=== PATIENT | female | born 1965 | race Caucasian/White ===

== ENCOUNTER 2016-05-22 17:33 | Emergency (ER) | payer MEDICARE ==
[~2016-05-22] VITALS: Ht 152.4 cm; Wt 76.4 kg
[~2016-05-22 17:33] MED LIST: ALPRAZOLAM PO; AUGMENTIN XR 101 TER PO; CELEBREX; CELEXA40 MG PO; CILOXAN .3% EY2.5 ML OD; CIPRO 500MG TA500 MG PO; DAYQUIL PO; DOXYCYCLINE 10100 MG PO; EPIPEN 2-PAK1 MG/ML IM; FLEXERIL 1010 MG/TAB PO; HYDROXYZINE PO; LAMICTAL 100MG100 MG PO; LAMICTAL1 TAB PO; LEXAPRO10 MG PO; LORTAB 5/500 501 TAB PO; MAALOX1 TAB PO; METRONIDAZOLE500 MG PO; MILK OF MA400 MG/51 PO; MORPHINE; MOTRIN800 MG PO; MS CONTIN 330 MG/TAB PO; MSIR30 MG PO; MYLANTA PO; NAPROSYN500 MG PO; NAPROXEN 3375 MG/TAB PO; NEXIUM 40MG40 MG PO; NEXIUM PO; NORCO 325 MG-51 TAB PO; PEPCID 20MG TAB20 MG PO; PERCOCET 325 MG1 TA2 PO; PERCOCET 325 MG1 TAB PO; PHENERGAN 25 TA25 MG PO; PHENERGAN25 MG RC; PREDNISONE20 MG PO; PRILOSEC10 MG PO; TEGRETOL 1100 MG/TAB PO; TRAMADOL; TRAZADONE HYDR100 MG PO; ULTRAM 50MG TAB50 MG PO; ULTRAM50 MG PO; UNABLE; VALIUM10 MG PO; VOLTAREN 75 DR75 MG PO; WELLBUTRIN XL300 M1 PO; XANAX 1MG1 MG PO; XANAX1 MG PO; ZOFRAN 4MG T4 MG/TAB PO; ZOFRAN ODT4 MG PO; ZOFRAN4 M1 PO; [UNRECOGNIZED DRUG - OTHER] PO
[2016-05-22 17:36] VITALS: TEMP 98.3
[2016-05-22 18:36] LABS: BASO % 0.5 % (0.0-2.0); EOS # 0.1 (0.0-0.7); GRAN # 4.2 (1.4-6.5); HEMATOCRIT 39.3 % (37.0-47.0); LYMPH # 4.1 (1.2-3.4); LYMPH % 46.4 % (20.0-51.0); MEAN CELL VOLUME 88 fl (80.0-100.0); MEAN CORPUSCULAR HEMOGLOBIN 29 pg (27.0-31.0); MEAN CORPUSCULAR HGB CONC 33 g/dl (33.0-37.0); MEAN PLATELET VOLUME 8.7 fl (7.4-10.4); MONO # 0.4 (0.1-0.6); MONO % 4.9 % (1.7-9.3); PLATELET COUNT 410 K/mm3 (130-400); RED BLOOD COUNT 4.49 M/mm3 (4.10-5.30); REDCELL DISTRIBUTION WIDTH-CV 12.5 % (11.5-14.5); WHITE BLOOD COUNT 8.9 K/mm3 (4.8-10.8)
[2016-05-22 18:41] LABS: PH 7 (5-8); SQUAMOUS EPITHELIAL 0-2 /hpf; URINE APPEARANCE Clear; URINE BACTERIA None Seen /hpf; URINE BILIRUBIN Negative (NEGATIVE); URINE BLOOD Negative (NEGATIVE); URINE COLOR Yellow; URINE GLUCOSE Negative (NEGATIVE); URINE KETONE Negative (NEGATIVE); URINE UROBILINOGEN Negative (NEGATIVE); URINE WBC 0-2 /hpf
[2016-05-22 20:00] VITALS: BP 104/71; PULSE 80
== END 2016-05-22 20:00 | disposition home or self-care (01) ==
LOC: COL.ER 17:33
PROVIDERS: Family Medicine
DX: N81.6 Rectocele (principal); N76.0 Acute vaginitis

== ENCOUNTER → 2016-10-05 | Outpatient (CLI) | payer MEDICARE | LOC: COL.RAD 08:50 | DX: K57.92 Diverticulitis of intestine, part unspecified, without perforation or abscess without bleeding (principal); K76.0 Fatty (change of) liver, not elsewhere classified; K59.00 Constipation, unspecified; K57.90 Diverticulosis of intestine, part unspecified, without perforation or abscess without bleeding | CPT/HCPCS: Q9967 ==

== ENCOUNTER 2017-01-13 13:26 | Emergency (ER) | payer MEDICARE ==
[~2017-01-13] VITALS: Ht 152.4 cm; Wt 75.5 kg
[2017-01-13 13:53] VITALS: TEMP 98
[2017-01-13 14:28] LABS: BASO % 0.3 % (0.0-2.0); EOS # 0.1 (0.0-0.7); EOS % 0.6 % (0-4.0); GRAN # 6.5 (1.4-6.5); GRAN % 67.5 % (42.2-75.2); HEMATOCRIT 41.4 % (37.0-47.0); LYMPH # 2.7 (1.2-3.4); MEAN CELL VOLUME 89 fl (80.0-100.0); MEAN CORPUSCULAR HEMOGLOBIN 30 pg (27.0-31.0); MEAN CORPUSCULAR HGB CONC 34 g/dl (33.0-37.0); MEAN PLATELET VOLUME 8.9 fl (7.4-10.4); MONO # 0.3 (0.1-0.6); MONO % 3.4 % (1.7-9.3); PLATELET COUNT 411 K/mm3 (130-400); RED BLOOD COUNT 4.66 M/mm3 (4.10-5.30); REDCELL DISTRIBUTION WIDTH-CV 12.6 % (11.5-14.5); WHITE BLOOD COUNT 9.6 K/mm3 (4.8-10.8)
[2017-01-13 14:44] LABS: ALANINE AMINOTRANSFERASE 23 U/L (9-52); ALBUMIN 4.8 gm/dL (3.5-5.0); ALKALINE PHOSPHATASE 58 U/L (50-136); ANION GAP 14 mmol/L (7-16); BILIRUBIN,TOTAL 0.5 mg/dL (0.0-1.0); BLOOD UREA NITROGEN 10 mg/dL (7-17); CALCIUM 10.6 mg/dL (8.4-10.2); CARBON DIOXIDE 22 mmol/L (22-30); CHLORIDE 105 mmol/L (98-107); CREATININE, serum 0.54 mg/dL (0.52-1.25); GLUCOSE 100 mg/dL (74-106); SODIUM 142 mmol/L (137-145); TOTAL PROTEIN 8.7 gm/dL (6.4-8.2)
[2017-01-13 14:49] LABS: C-REACTIVE PROTEIN < 0.5 mg/dL (0.0-0.9)
[2017-01-13 15:45] LABS: PH 7 (5-8); SQUAMOUS EPITHELIAL 0-2 /hpf; URINE APPEARANCE Clear; URINE BACTERIA None Seen /hpf; URINE BILIRUBIN Negative (NEGATIVE); URINE BLOOD 3+ (NEGATIVE); URINE COLOR Straw; URINE GLUCOSE Negative (NEGATIVE); URINE KETONE Negative (NEGATIVE); URINE UROBILINOGEN Negative (NEGATIVE); URINE WBC 0-2 /hpf
[2017-01-13] MEDS ORDERED: PERCOCET 325 MG1 TA2 PO (16:51)
[2017-01-13 16:59] VITALS: BP 118/78; PULSE 89
== END 2017-01-13 17:00 | disposition home or self-care (01) ==
LOC: COL.ER 13:26
PROVIDERS: Nurse Practitioner
DX: M54.5 Low back pain (principal); M54.2 Cervicalgia; G89.29 Other chronic pain
CPT/HCPCS: J2270; J2405; J7030; Q9967

== ENCOUNTER 2017-11-01 04:28 | Emergency (ER) | payer MEDICARE ==
[~2017-11-01] VITALS: Ht 154.9 cm; Wt 70.5 kg
[2017-11-01 04:38] VITALS: TEMP 97.1
[2017-11-01 05:07] LABS: BASO % 0.3 % (0.0-2.0); EOS # 0.1 (0.0-0.7); EOS % 1.4 % (0-4.0); GRAN # 4.6 (1.4-6.5); GRAN % 47.1 % (42.2-75.2); HEMATOCRIT 38.3 % (37.0-47.0); HEMOGLOBIN 12.8 g/dl (12.5-16.0); LYMPH # 4.5 (1.2-3.4); LYMPH % 45.6 % (20.0-51.0); MEAN CELL VOLUME 89 fl (80.0-100.0); MEAN CORPUSCULAR HEMOGLOBIN 30 pg (27.0-31.0); MEAN CORPUSCULAR HGB CONC 33 g/dl (33.0-37.0); MEAN PLATELET VOLUME 8.8 fl (7.4-10.4); MONO # 0.5 (0.1-0.6); MONO % 5.4 % (1.7-9.3); PLATELET COUNT 419 K/mm3 (130-400); RED BLOOD COUNT 4.33 M/mm3 (4.10-5.30); REDCELL DISTRIBUTION WIDTH-CV 12.8 % (11.5-14.5)
[2017-11-01 05:11] LABS: INR 0.9 (0.8-3.0); PROTHROMBIN TIME 10.6 SECONDS (9.7-12.8)
[2017-11-01 05:12] LABS: ALANINE AMINOTRANSFERASE 22 U/L (9-52); ALBUMIN 4.2 gm/dL (3.5-5.0); ALKALINE PHOSPHATASE 55 U/L (50-136); ANION GAP 16 mmol/L (7-16); AST,SGOT 52 U/L (15-37); BILIRUBIN,TOTAL 0.3 mg/dL (0.0-1.0); BLOOD UREA NITROGEN 15 mg/dL (7-17); CALCIUM 9.1 mg/dL (8.4-10.2); CARBON DIOXIDE 20 mmol/L (22-30); CHLORIDE 104 mmol/L (98-107); CREATININE, serum 0.61 mg/dL (0.52-1.25); GLUCOSE 143 mg/dL (74-106); POTASSIUM 3.8 mmol/L (3.4-5.0); SODIUM 140 mmol/L (137-145); TOTAL PROTEIN 7.6 gm/dL (6.4-8.2)
[2017-11-01 05:26] LABS: TROPONIN-I < 0.012 ng/mL (0.000-0.034)
[2017-11-01] MEDS ORDERED: PERCOCET 325 MG1 TAB PO (06:07)
[2017-11-01] MEDS ORDERED: ZOFRAN 4MG T4 MG/TAB PO (06:08)
[2017-11-01] MEDS ORDERED: LIPITOR20 MG PO (06:08)
[2017-11-01 07:22] VITALS: BP 100/59; PULSE 60
== END 2017-11-01 07:22 | disposition home or self-care (01) ==
LOC: COL.ER 04:28
PROVIDERS: Emergency Medicine
DX: G89.29 Other chronic pain (principal); R07.89 Other chest pain; M54.9 Dorsalgia, unspecified; R10.9 Unspecified abdominal pain; F17.210 Nicotine dependence, cigarettes, uncomplicated; Z90.89 Acquired absence of other organs
CPT/HCPCS: J2360; J2405; J3010; J7030

== ENCOUNTER 2017-12-17 20:07 | Emergency (ER) | payer MEDICARE ==
[~2017-12-17] VITALS: Ht 154.9 cm; Wt 72.7 kg
[~2017-12-17 20:07] MED LIST changes: +LIPITOR20 MG PO
[2017-12-17 20:11] VITALS: TEMP 97.5
[2017-12-17 21:45] LABS: BASO % 0.3 % (0.0-2.0); EOS # 0.1 (0.0-0.7); EOS % 1.6 % (0-4.0); GRAN # 3.3 (1.4-6.5); GRAN % 42.6 % (42.2-75.2); HEMATOCRIT 40.3 % (37.0-47.0); HEMOGLOBIN 13.8 g/dl (12.5-16.0); LYMPH # 3.8 (1.2-3.4); LYMPH % 49.3 % (20.0-51.0); MEAN CELL VOLUME 88 fl (80.0-100.0); MEAN CORPUSCULAR HEMOGLOBIN 30 pg (27.0-31.0); MEAN CORPUSCULAR HGB CONC 34 g/dl (33.0-37.0); MEAN PLATELET VOLUME 8.7 fl (7.4-10.4); MONO # 0.5 (0.1-0.6); MONO % 5.9 % (1.7-9.3); PLATELET COUNT 316 K/mm3 (130-400); RED BLOOD COUNT 4.59 M/mm3 (4.10-5.30); REDCELL DISTRIBUTION WIDTH-CV 12.5 % (11.5-14.5)
[2017-12-17 21:47] LABS: COLLECTION METHOD CLEAN CATCH
[2017-12-17 21:51] LABS: ALANINE AMINOTRANSFERASE 25 U/L (9-52); ALBUMIN 4.3 gm/dL (3.5-5.0); ALKALINE PHOSPHATASE 51 U/L (50-136); ANION GAP 13 mmol/L (7-16); AST,SGOT 19 U/L (15-37); BILIRUBIN,TOTAL 0.2 mg/dL (0.0-1.0); BLOOD UREA NITROGEN 12 mg/dL (7-17); C-REACTIVE PROTEIN 0.7 mg/dL (0.0-0.9); CALCIUM 8.8 mg/dL (8.4-10.2); CARBON DIOXIDE 23 mmol/L (22-30); CHLORIDE 105 mmol/L (98-107); CREATININE, serum 0.67 mg/dL (0.52-1.25); GLUCOSE 108 mg/dL (74-106); POTASSIUM 3.9 mmol/L (3.4-5.0); SODIUM 141 mmol/L (137-145); TOTAL PROTEIN 7.8 gm/dL (6.4-8.2)
[2017-12-17 21:57] LABS: MUCOUS Present /lpf; PH 6 (5-8); SQUAMOUS EPITHELIAL 0-2 /hpf; URINE APPEARANCE Clear; URINE BACTERIA None Seen /hpf; URINE BILIRUBIN Negative (NEGATIVE); URINE BLOOD Negative (NEGATIVE); URINE COLOR Yellow; URINE GLUCOSE Negative (NEGATIVE); URINE KETONE Negative (NEGATIVE); URINE LEUKOCYTE ESTERASE Negative (NEGATIVE); URINE NITRATE Negative (NEGATIVE); URINE PROTEIN(semi-quant) Negative (NEGATIVE); URINE RBC 0-2 /hpf; URINE UROBILINOGEN >=4.0 mg/dL (NEGATIVE)
[2017-12-17 22:01] LABS: TROPONIN-I < 0.012 ng/mL (0.000-0.034)
[2017-12-17] MEDS ORDERED: ATIVAN 0.50.5 MG/TAB PO (23:36)
[2017-12-17] MEDS ORDERED: ZOFRAN 4MG T4 MG/TAB PO (23:36)
[2017-12-17 23:56] VITALS: BP 99/65; PULSE 79
== END 2017-12-18 | disposition home or self-care (01) ==
LOC: COL.ER 20:07
PROVIDERS: Emergency Medicine
DX: S33.9XXA Sprain of unspecified parts of lumbar spine and pelvis, initial encounter (principal); G89.29 Other chronic pain; M54.5 Low back pain; I10 Essential (primary) hypertension; R42 Dizziness and giddiness; F17.210 Nicotine dependence, cigarettes, uncomplicated; W19.XXXA Unspecified fall, initial encounter; Y93.E1 Activity, personal bathing and showering
CPT/HCPCS: J1170; J2060; J2405; J2550; J7030

== ENCOUNTER 2018-08-06 16:15 | Emergency (ER) | payer MEDICARE ==
[~2018-08-06] VITALS: Ht 154.9 cm; Wt 78.3 kg
[~2018-08-06 16:15] MED LIST changes: +ATIVAN 0.50.5 MG/TAB PO
[2018-08-06 16:20] VITALS: BP 135/77; TEMP 98
[2018-08-06 16:50] LABS: BASO % 0.2 % (0.0-2.0); EOS # 0.1 (0.0-0.7); GRAN # 6.3 (1.4-6.5); GRAN % 62.1 % (42.2-75.2); HEMATOCRIT 39.4 % (37.0-47.0); HEMOGLOBIN 13.2 g/dl (12.5-16.0); LYMPH # 3.2 (1.2-3.4); LYMPH % 31.7 % (20.0-51.0); MEAN CELL VOLUME 88 fl (80.0-100.0); MEAN CORPUSCULAR HEMOGLOBIN 30 pg (27.0-31.0); MEAN CORPUSCULAR HGB CONC 34 g/dl (33.0-37.0); MEAN PLATELET VOLUME 8.7 fl (7.4-10.4); MONO # 0.5 (0.1-0.6); MONO % 4.7 % (1.7-9.3); PLATELET COUNT 394 K/mm3 (130-400); RED BLOOD COUNT 4.48 M/mm3 (4.10-5.30); REDCELL DISTRIBUTION WIDTH-CV 12.5 % (11.5-14.5)
[2018-08-06 17:03] LABS: ALANINE AMINOTRANSFERASE 15 U/L (9-52); ALBUMIN 4.4 gm/dL (3.5-5.0); ALKALINE PHOSPHATASE 64 U/L (50-136); ANION GAP 12 mmol/L (7-16); AST,SGOT 25 U/L (15-37); BILIRUBIN,TOTAL 0.3 mg/dL (0.0-1.0); BLOOD UREA NITROGEN 18 mg/dL (7-17); C-REACTIVE PROTEIN 0.9 mg/dL (0.0-0.9); CALCIUM 9.3 mg/dL (8.4-10.2); CARBON DIOXIDE 21 mmol/L (22-30); CHLORIDE 108 mmol/L (98-107); CREATININE, serum 0.63 (0.52-1.25); GLUCOSE 125 mg/dL (74-106); LIPASE 65 U/L (23-300); POTASSIUM 4.1 mmol/L (3.4-5.0); SODIUM 141 mmol/L (137-145)
[2018-08-06 17:26] LABS: TROPONIN-I < 0.012 ng/mL (0.000-0.035)
[2018-08-06 18:42] LABS: COLLECTION METHOD CLEAN CATCH
[2018-08-06 18:48] LABS: PH 5 (5-8); SQUAMOUS EPITHELIAL 0-2 /hpf; URINE APPEARANCE Clear; URINE BACTERIA None Seen /hpf; URINE BILIRUBIN Negative (NEGATIVE); URINE BLOOD Negative (NEGATIVE); URINE COLOR Straw; URINE GLUCOSE Negative (NEGATIVE); URINE KETONE Negative (NEGATIVE); URINE LEUKOCYTE ESTERASE Negative (NEGATIVE); URINE NITRATE Negative (NEGATIVE); URINE PROTEIN(semi-quant) Negative (NEGATIVE); URINE RBC 0-2 /hpf; URINE UROBILINOGEN Negative (NEGATIVE)
[2018-08-06] MEDS ORDERED: ZOFRAN 4MG T4 MG/TAB PO (19:24)
[2018-08-06] MEDS ORDERED: PROTONIX 40MG T40 MG PO (19:24)
[2018-08-06 20:00] VITALS: PULSE 94
== END 2018-08-06 20:40 | disposition home or self-care (01) ==
LOC: COL.ER 16:15
PROVIDERS: Emergency Medicine
DX: R10.11 Right upper quadrant pain (principal); E78.5 Hyperlipidemia, unspecified; F41.9 Anxiety disorder, unspecified; F32.9 Major depressive disorder, single episode, unspecified
CPT/HCPCS: J1630; J2060; J2405; J3010; J7030; Q9967

== ENCOUNTER 2019-07-27 00:55 | Emergency (ER) | payer MEDICARE, MEDICAID ==
[~2019-07-27] VITALS: Ht 154.9 cm; Wt 79.1 kg
[~2019-07-27 00:55] MED LIST changes: +PROTONIX 40MG T40 MG PO
[2019-07-27 01:22] LABS: COLLECTION METHOD CLEAN CATCH
[2019-07-27 01:28] LABS: MUCOUS Present /lpf; PH 7 (5-8); SQUAMOUS EPITHELIAL 0-2 /hpf; URINE APPEARANCE Clear; URINE BACTERIA None Seen /hpf; URINE BILIRUBIN Negative (NEGATIVE); URINE BLOOD Negative (NEGATIVE); URINE COLOR Amber; URINE GLUCOSE Negative (NEGATIVE); URINE KETONE Negative (NEGATIVE); URINE LEUKOCYTE ESTERASE Negative (NEGATIVE); URINE NITRATE Positive (NEGATIVE); URINE PROTEIN(semi-quant) Negative (NEGATIVE); URINE RBC 0-2 /hpf; URINE UROBILINOGEN >=4.0 mg/dL (NEGATIVE)
[2019-07-27 01:36] LABS: MEAN CELL VOLUME 87 fl (80.0-100.0); MEAN CORPUSCULAR HEMOGLOBIN 29 pg (27.0-31.0); MEAN CORPUSCULAR HGB CONC 33 g/dl (33.0-37.0); MEAN PLATELET VOLUME 8.7 fl (7.4-10.4); PLATELET COUNT 426 K/mm3 (130-400); RED BLOOD COUNT 4.85 M/mm3 (4.10-5.30); REDCELL DISTRIBUTION WIDTH-CV 12.7 % (11.5-14.5)
[2019-07-27 01:45] LABS: CALCIUM 9.4 mg/dL (8.4-10.2); CREATININE, serum 0.51 (0.52-1.25); POTASSIUM 3.9 mmol/L (3.4-5.0)
[2019-07-27] MEDS ORDERED: OMNICEF 300MG300 MG PO (01:45)
[2019-07-27 02:19] LABS: BASOPHIL 1 % (0-2); LYMPHOCYTE 58 % (20.0-51.0); NEUTROPHILS 36 % (42.0-75.2); PLATELET ESTIMATE INCREASED (NORMAL)
[2019-07-27 03:07] VITALS: BP 129/87; PULSE 68; TEMP 97.2
== END 2019-07-27 03:20 | disposition home or self-care (01) ==
LOC: COL.ER 00:55
PROVIDERS: Physician Assistant
DX: N39.0 Urinary tract infection, site not specified (principal)
CPT/HCPCS: A4216; J0696; J1885; J2270; J2405; J7030

== ENCOUNTER 2020-01-03 12:56 | Emergency (ER) | payer MEDICARE, MEDICAID ==
[~2020-01-03] VITALS: Ht 154.9 cm; Wt 80.5 kg
[~2020-01-03 12:56] MED LIST changes: +OMNICEF 300MG300 MG PO
[2020-01-03 12:57] VITALS: TEMP 98.3
[2020-01-03 13:11] LABS: COLLECTION METHOD CLEAN CATCH
[2020-01-03 13:27] LABS: PH 6 (5-8); SQUAMOUS EPITHELIAL 0-2 /hpf; URINE APPEARANCE Clear; URINE BACTERIA None Seen /hpf; URINE BILIRUBIN Negative (NEGATIVE); URINE BLOOD Negative (NEGATIVE); URINE COLOR Colorless; URINE GLUCOSE Negative (NEGATIVE); URINE KETONE Negative (NEGATIVE); URINE LEUKOCYTE ESTERASE Negative (NEGATIVE); URINE NITRATE Negative (NEGATIVE); URINE PROTEIN(semi-quant) Negative (NEGATIVE); URINE RBC 0-2 /hpf; URINE UROBILINOGEN Negative (NEGATIVE)
[2020-01-03 13:28] LABS: BASO % 0.3 % (0.0-2.0); EOS # 0.1 (0.0-0.7); EOS % 1.9 % (0-4.0); GRAN # 2.6 (1.4-6.5); GRAN % 37.1 % (42.2-75.2); HEMATOCRIT 43.4 % (37.0-47.0); HEMOGLOBIN 14.5 g/dl (12.5-16.0); LYMPH # 3.7 (1.2-3.4); LYMPH % 53.7 % (20.0-51.0); MEAN CELL VOLUME 88 fl (80.0-100.0); MEAN CORPUSCULAR HEMOGLOBIN 29 pg (27.0-31.0); MEAN CORPUSCULAR HGB CONC 33 g/dl (33.0-37.0); MEAN PLATELET VOLUME 9.4 fl (7.4-10.4); MONO # 0.5 (0.1-0.6); MONO % 6.6 % (1.7-9.3); PLATELET COUNT 349 K/mm3 (130-400); RED BLOOD COUNT 4.96 M/mm3 (4.10-5.30); REDCELL DISTRIBUTION WIDTH-CV 12.9 % (11.5-14.5)
[2020-01-03 14:11] LABS: ALBUMIN 4.3 gm/dL (3.5-5.0); BILIRUBIN,TOTAL 0.4 mg/dL (0.0-1.0); CALCIUM 9.9 mg/dL (8.4-10.2); CREATININE, serum 0.55 (0.52-1.25); MAGNESIUM 1.9 mg/dL (1.6-2.3); TOTAL PROTEIN 7.8 gm/dL (6.4-8.2)
[2020-01-03 15:15] LABS: TROPONIN-I < 0.012 ng/mL (0.000-0.035)
[2020-01-03 17:20] VITALS: BP 98/75; PULSE 69
== END 2020-01-03 17:20 | disposition home or self-care (01) ==
LOC: COL.ER 12:56
PROVIDERS: Emergency Medicine
DX: R55 Syncope and collapse (principal); R53.1 Weakness
CPT/HCPCS: J7030

== ENCOUNTER 2020-07-11 21:37 | Observation (INO) | payer MEDICARE, MEDICAID ==
[~2020-07-11] VITALS: Ht 160 cm; Wt 77.3 kg
[2020-07-11 22:16] LABS: BASO % 0.4 % (0.0-2.0); EOS # 0.2 (0.0-0.7); EOS % 2.6 % (0-4.0); GRAN # 3.4 (1.4-6.5); HEMATOCRIT 42.3 % (37.0-47.0); LYMPH # 3.7 (1.2-3.4); LYMPH % 47.5 % (20.0-51.0); MEAN CELL VOLUME 89 fl (80.0-100.0); MEAN CORPUSCULAR HEMOGLOBIN 30 pg (27.0-31.0); MEAN CORPUSCULAR HGB CONC 33 g/dl (33.0-37.0); MEAN PLATELET VOLUME 9.1 fl (7.4-10.4); MONO # 0.5 (0.1-0.6); MONO % 6.4 % (1.7-9.3); PLATELET COUNT 443 K/mm3 (130-400); RED BLOOD COUNT 4.73 M/mm3 (4.10-5.30); REDCELL DISTRIBUTION WIDTH-CV 12.9 % (11.5-14.5)
[2020-07-11 22:23] LABS: INR 1.1 (0.8-3.0); PROTHROMBIN TIME 11.9 SECONDS (9.7-12.8)
[2020-07-11 22:30] LABS: ALANINE AMINOTRANSFERASE 18 U/L (4-34); ALBUMIN 4.8 gm/dL (3.5-5.0); ALKALINE PHOSPHATASE 60 U/L (50-136); ANION GAP 12 mmol/L (7-16); AST,SGOT 24 U/L (15-37); BILIRUBIN,TOTAL < 0.1 mg/dL (0.0-1.0); BLOOD UREA NITROGEN 14 mg/dL (7-17); C-REACTIVE PROTEIN 0.7 mg/dL (0.0-0.9); CALCIUM 9.7 mg/dL (8.4-10.2); CARBON DIOXIDE 23 mmol/L (22-30); CHLORIDE 104 mmol/L (98-107); CREATININE, serum 0.67 (0.52-1.25); GLUCOSE 94 mg/dL (74-106); LIPASE 82 U/L (23-300); POTASSIUM 3.8 mmol/L (3.4-5.0); SODIUM 139 mmol/L (137-145); TOTAL PROTEIN 9.4 gm/dL (6.4-8.2)
[2020-07-12] VITALS (15 sets, daily range): BP systolic 86–117; BP diastolic 46–67; PULSE 54–68; TEMP 97.5–98.5
[2020-07-12] MEDS ORDERED: PERCOCET 325 MG1 TA3 PO (00:23)
[2020-07-12] MEDS ORDERED: XANAX 0.5MG0.5 MG PO (00:26)
[2020-07-12] MEDS ORDERED: NEXIUM 40MG40 MG PO (00:29)
[2020-07-12] MEDS ORDERED: MAGNESIUM200 MG PO (00:31)
[2020-07-12] MEDS ORDERED: B-121000 MCG (00:31)
[2020-07-12] MEDS ORDERED: CALCIUM 600 PLU1 TAB PO (00:31)
[2020-07-12] MEDS ORDERED: PROBIOTIC ACID1 EAC3 PO (00:31)
[2020-07-12] MEDS ORDERED: FOLIC ACID 11 MG/TA1 PO (00:32)
[2020-07-12] MEDS ORDERED: PRENATAL PO (00:32)
--- NOTE | 2020-07-12 02:00 | NUR ---
PATIENT ARRIVED TO FLOOR, C/O PAIN 07/13 - OBJECTIVE SIGNS OF PAIN INCLUDE GRIMACING OF FACE, MOANING AND HOLDING ABDOMEN; INABILITY TO TAKE DEEP BREATHS WITHOUT ABDOMINAL PAIN; SELF RESTRICTING MOVEMENTS D/T PAIN. TREATED WITH MORPHINE IN ED THEN DILAUDID ON FLOOR.
[2020-07-12 06:00] LABS: BASO % 0.5 % (0.0-2.0); EOS # 0.2 (0.0-0.7); EOS % 2.7 % (0-4.0); GRAN % 31.8 % (42.2-75.2); HEMATOCRIT 37.2 % (37.0-47.0); HEMOGLOBIN 12.2 g/dl (12.5-16.0); LYMPH # 3.7 (1.2-3.4); LYMPH % 59.3 % (20.0-51.0); MEAN CELL VOLUME 88 fl (80.0-100.0); MEAN CORPUSCULAR HEMOGLOBIN 29 pg (27.0-31.0); MEAN CORPUSCULAR HGB CONC 33 g/dl (33.0-37.0); MEAN PLATELET VOLUME 8.7 fl (7.4-10.4); MONO # 0.3 (0.1-0.6); MONO % 5.4 % (1.7-9.3); PLATELET COUNT 369 K/mm3 (130-400); RED BLOOD COUNT 4.21 M/mm3 (4.10-5.30); REDCELL DISTRIBUTION WIDTH-CV 12.9 % (11.5-14.5)
[2020-07-12 06:10] LABS: CALCIUM 8.7 mg/dL (8.4-10.2); CREATININE, serum 0.53 (0.52-1.25); POTASSIUM 3.8 mmol/L (3.4-5.0)
--- NOTE | 2020-07-12 06:21 | NUR ---
PATIENT APPEARS TO HAVE PAIN Q3H; DILAUDID GIVEN WITH GOOD RELEIF 2X IN SHIFT.
--- NOTE | 2020-07-12 07:15 | NUR ---
Pt. laying in bed upon entering. Pt. c/o dizziness, confusion, and lower epigastric pain.Pt. states she has not eaten in three days and feels the medication consumption is making her even more confused. Nurse explained NPO status and provided necessary relevant education. Nurse will continue to monitor pt. Call light within reach.
--- NOTE | 2020-07-12 09:01 | NUR ---
ANTONEILIINTERPRETING FOR PT. PT REPORTING FEELING VERY DIZZY AND LIGHTHEADED AND SHAKY . PT BP RECHECKED WITH A 104 SYSTOLIC. PT BS CHECKED AND WAS 87. PT DID SAY THAT SHE HAD RECENTLY SEEN A DOCTOR AND HAS A FOLLOW UP APPT AND SAID THAT DIABETES WOULD BE A CONCERN. FLUIDS RUNNING AT 125. ELLIE SOTELO NOTIFIED.
--- NOTE | 2020-07-12 09:28 | NUR ---
BOLUS INFUSING, PT REPORTING FEELING SLIGHTLY BETTER, REPORTS BURNING IN ABDOMEN, REQUESTING ANXIETY MEDICATION. DEEPAK ARGUETA UPDATED ON IMPROVED PRESSURE.
--- NOTE | 2020-07-12 11:02 | NUR ---
Pt. states she is feeling chest pain but believes it is due to her anxiety.She request her anti-anxiety medication. Xanax 0.5 mg was given. Patient states she is feeling better. No more chest discomfort/pain.Will continue to monitor. Call light within reach.
--- NOTE | 2020-07-12 12:13 | NUR ---
Per providers order, a 2nd 500 bolus of L/R initiated, N/S rate changed from 125 to 150 ml/hr. Pt. expresses no further needs at this time. Call light within reach. Will continu to monitor.
--- NOTE | 2020-07-12 13:25 | NUR ---
PT RETURNED FROM PROCEDURE, PT GRIMACING AND HAVING LABORED BREATHING. PT BP STILL SOFT, IV FLUIDS INFUSING, NO OTHER NEEDS AT THIS TIME.
--- NOTE | 2020-07-12 13:36 | NUR ---
PT REPORTS FEELING "DIZZY AND LIGHT HEADED AND MORE CONFUSED THAN NORMAL" , BP LOWER THAN PREVIOUSLY, WILL RECHECK WITH MANUAL.
--- NOTE | 2020-07-12 14:07 | NUR ---
Primary nurse was assisted with [id number] patient care by [employer] student Lemuel Kay and [employer] instructor Ana Garces MSN, RN.
--- NOTE | 2020-07-12 14:18 | NUR ---
Nurse called Dr. Del Castillo to inform him of patient status post EGD. Nurse informed provider of soft B/P's (), L/R bolus infusing. Call light within reach.
--- NOTE | 2020-07-12 14:51 | NUR ---
Pt. in bed resting. No obvious concerns or need expressed at this time. Call light within reach.
--- NOTE | 2020-07-12 17:44 | NUR ---
Pt. sitting in bed, alert and oriented. Currently states she is feeling better after food consumption but still feels a burning sensation in her epigastric region. She rates the pain/discomfort at a 4/10. Denies medication to alleviate pain. IV fluids infusing, L/R bolus 500ML, N/S 150 ML/HR. B/P's running in reference range, pt. will remain overnight for continued observation. All relevant educated provided to patient concerning Dx. Pt. confirms understanding. Will continue to monitor. Reminded patient to call to transfer. Call light within reach.
[2020-07-13 00:40] VITALS: BP 99/48; PULSE 60; TEMP 98.6
[2020-07-13 03:35] VITALS: BP 100/64; PULSE 62; TEMP 98.5
--- NOTE | 2020-07-13 05:14 | NUR ---
Patient had received pain medication as requested during the night, and Zofran this morning for nausea. No emesis so far. Denies pain at this time. Voices no questions, needs, or concerns at this time. Resting in bed with call light within reach. IV fluids continue per orders.
[2020-07-13 06:12] LABS: BASO % 0.3 % (0.0-2.0); EOS # 0.1 (0.0-0.7); EOS % 1.8 % (0-4.0); GRAN # 3.6 (1.4-6.5); GRAN % 50.5 % (42.2-75.2); HEMOGLOBIN 11.7 g/dl (12.5-16.0); LYMPH % 42.5 % (20.0-51.0); MEAN CELL VOLUME 89 fl (80.0-100.0); MEAN CORPUSCULAR HEMOGLOBIN 29 pg (27.0-31.0); MEAN CORPUSCULAR HGB CONC 32 g/dl (33.0-37.0); MEAN PLATELET VOLUME 8.8 fl (7.4-10.4); MONO # 0.3 (0.1-0.6); MONO % 4.6 % (1.7-9.3); PLATELET COUNT 341 K/mm3 (130-400); RED BLOOD COUNT 4.06 M/mm3 (4.10-5.30); REDCELL DISTRIBUTION WIDTH-CV 13.1 % (11.5-14.5)
[2020-07-13 06:21] LABS: CALCIUM 8.4 mg/dL (8.4-10.2); CREATININE, serum 0.49 (0.52-1.25); HEMATOCRIT 36.2 % (37.0-47.0); POTASSIUM 3.4 mmol/L (3.4-5.0)
--- NOTE | 2020-07-13 07:00 | NUR ---
Report received from OLIVERIO Murray. PT in bed resting on side, eyes closed, will continue to monitor.
[2020-07-13 07:35] VITALS: BP 102/61; PULSE 66; TEMP 98.7
[2020-07-13 08:51] LABS: COLLECTION METHOD CLEAN CATCH
[2020-07-13 08:58] LABS: MUCOUS Present /lpf; PH 6 (5-8); SQUAMOUS EPITHELIAL 0-2 /hpf; URINE APPEARANCE Clear; URINE BACTERIA None Seen /hpf; URINE BILIRUBIN Negative (NEGATIVE); URINE BLOOD Negative (NEGATIVE); URINE COLOR Straw; URINE GLUCOSE Negative (NEGATIVE); URINE KETONE Negative (NEGATIVE); URINE LEUKOCYTE ESTERASE Negative (NEGATIVE); URINE NITRATE Negative (NEGATIVE); URINE PROTEIN(semi-quant) Negative (NEGATIVE); URINE RBC 0-2 /hpf; URINE UROBILINOGEN Negative (NEGATIVE)
[2020-07-13] MEDS ORDERED: FLORINEF ACETA0.1 MG PO (09:42)
[2020-07-13] MEDS ORDERED: NEXIUM 40MG40 MG PO ×2 (09:45)
--- NOTE | 2020-07-13 10:01 | NUR ---
Assessment charted. Discussed blood pressures, labs, and pt c/o burning on urination. UA sent. Pt discussed how she feels tired at home and has a hard time getting out of bed every day. Resting at this time, denies pain. IVF to LFA. Will continue kami ontior.
[2020-07-13] MEDS ORDERED: PROTONIX 40MG T40 MG PO (10:07)
--- NOTE | 2020-07-13 10:31 | NUR ---
SW met with patient to conduct intake evaluation. Patient lives at home alone in [facility]. She reports that her son Nathan Germain (P# [phone]) is her DPOA. Patient was instructed to contact son and have his send or bring a copy of paperwork into the hospital for records. Patient's PCP is Dr. Danielle Silverman, and she uses [facility] for medications. Patient denies needing assistance with ADLs, does not use home health agencies, and uses a shower chair at home but no other DME. Patient denies needing assistance with medications. Patient plans to return home upon discharge. Patient asked if she would have a copay to settle before she leaves. SW reported that any cost would be billed to her home address. If she has concerns affording any remaining balance, patient was instructed to call hospital and contact financial counseling. Patient confirmed understanding. Patient will discharge home today 07/13 and requires assistance getting to her home address. Patient was given taxi voucher and instructed regarding how to use it upon discharge. There are no other needs at this time.
--- NOTE | 2020-07-13 11:22 | NUR ---
Discharge teaching completed at this [facility]. INT dc'd, tip intact. Pt received dishcarge packet, reviewed f/t appointmetns, new scripts sent to pharmacy, discussed taxi voucher. answered all questions. pt will leave with all belongings via w/c with medical staff via taxi.Pt states she feels better, excited to go home, criteria met.
== END 2020-07-13 11:55 | disposition home or self-care (01) ==
LOC: COL.ER 21:37 → MEDICAL 23:55
PROVIDERS: Emergency Medicine; Internal Medicine; Nurse Practitioner Family; Physician Assistant; ADMIT Hospitalist
DX: K21.00 Gastro-esophageal reflux disease with esophagitis, without bleeding (principal); K44.9 Diaphragmatic hernia without obstruction or gangrene; K92.0 Hematemesis; G89.29 Other chronic pain; M19.90 Unspecified osteoarthritis, unspecified site; F32.9 Major depressive disorder, single episode, unspecified; F41.9 Anxiety disorder, unspecified; E78.5 Hyperlipidemia, unspecified; I95.9 Hypotension, unspecified; M81.0 Age-related osteoporosis without current pathological fracture
CPT/HCPCS: 99233-AI; C9113; G0378; J1170; J2270; J2405; J2704; J7030; J7040; J7120; Q9967

== ENCOUNTER → 2020-08-27 | Outpatient (CLI) | payer MEDICARE, MEDICAID ==
[~2020-08-27] MED LIST changes: +B-121000 MCG; +CALCIUM 600 PLU1 TAB PO; +FLORINEF ACETA0.1 MG PO; +FOLIC ACID 11 MG/TA1 PO; +MAGNESIUM200 MG PO; +PERCOCET 325 MG1 TA3 PO; +PRENATAL PO; +PROBIOTIC ACID1 EAC3 PO; +ROXICODONE 55 MG/TAB PO; +XANAX 0.5MG0.5 MG PO
== END ==
LOC: COL.RAD 06:48
DX: R11.2 Nausea with vomiting, unspecified (principal)
CPT/HCPCS: A9541

== ENCOUNTER 2020-09-11 08:57 | Emergency (ER) | payer MEDICARE, MEDICAID ==
[~2020-09-11] VITALS: Ht 160 cm; Wt 79.5 kg
[~2020-09-11 08:57] MED LIST changes: -ROXICODONE 55 MG/TAB PO
[2020-09-11 09:18] VITALS: TEMP 97.7
[2020-09-11 09:55] LABS: BASO % 0.6 % (0.0-2.0); EOS # 0.2 (0.0-0.7); EOS % 2.8 % (0-4.0); GRAN # 2.3 (1.4-6.5); GRAN % 31.8 % (42.2-75.2); HEMATOCRIT 37.7 % (37.0-47.0); HEMOGLOBIN 12.4 g/dl (12.5-16.0); LYMPH # 4.1 (1.2-3.4); LYMPH % 58.3 % (20.0-51.0); MEAN CELL VOLUME 87 fl (80.0-100.0); MEAN CORPUSCULAR HEMOGLOBIN 29 pg (27.0-31.0); MEAN CORPUSCULAR HGB CONC 33 g/dl (33.0-37.0); MEAN PLATELET VOLUME 9.2 fl (7.4-10.4); MONO # 0.4 (0.1-0.6); MONO % 6.2 % (1.7-9.3); PLATELET COUNT 394 K/mm3 (130-400); RED BLOOD COUNT 4.32 M/mm3 (4.10-5.30)
[2020-09-11 10:07] LABS: ALANINE AMINOTRANSFERASE 16 U/L (4-34); ALBUMIN 4.2 gm/dL (3.5-5.0); ALKALINE PHOSPHATASE 48 U/L (50-136); ANION GAP 6 mmol/L (7-16); AST,SGOT 34 U/L (15-37); BILIRUBIN,TOTAL 0.5 mg/dL (0.0-1.0); BLOOD UREA NITROGEN 17 mg/dL (7-17); CALCIUM 9.4 mg/dL (8.4-10.2); CARBON DIOXIDE 24 mmol/L (22-30); CHLORIDE 106 mmol/L (98-107); CREATININE, serum 0.53 (0.52-1.25); GLUCOSE 109 mg/dL (74-106); POTASSIUM 4.2 mmol/L (3.4-5.0); SODIUM 137 mmol/L (137-145); TOTAL PROTEIN 7.7 gm/dL (6.4-8.2)
[2020-09-11 10:14] LABS: LIPASE 62 U/L (23-300)
[2020-09-11 10:20] LABS: TROPONIN-I < 0.012 ng/mL (0.000-0.035)
[2020-09-11 12:11] LABS: COLLECTION METHOD CLEAN CATCH
[2020-09-11 12:24] LABS: MUCOUS Present /lpf; PH 6 (5-8); SQUAMOUS EPITHELIAL 0-2 /hpf; URINE APPEARANCE Clear; URINE BACTERIA None Seen /hpf; URINE BILIRUBIN Negative (NEGATIVE); URINE BLOOD Negative (NEGATIVE); URINE COLOR Yellow; URINE GLUCOSE Negative (NEGATIVE); URINE KETONE Negative (NEGATIVE); URINE LEUKOCYTE ESTERASE Negative (NEGATIVE); URINE NITRATE Negative (NEGATIVE); URINE PROTEIN(semi-quant) Negative (NEGATIVE); URINE RBC 0-2 /hpf; URINE UROBILINOGEN Negative (NEGATIVE)
[2020-09-11] MEDS ORDERED: ROXICODONE 55 MG/TAB PO (13:01)
[2020-09-11] MEDS ORDERED: FLEXERIL 1010 MG/TAB PO (13:01)
[2020-09-11 13:22] VITALS: BP 100/60; PULSE 70
== END 2020-09-11 13:24 | disposition home or self-care (01) ==
LOC: COL.ER 08:57
PROVIDERS: Emergency Medicine
DX: R10.9 Unspecified abdominal pain (principal); R11.0 Nausea; F32.9 Major depressive disorder, single episode, unspecified; F41.9 Anxiety disorder, unspecified; K21.9 Gastro-esophageal reflux disease without esophagitis; M79.7 Fibromyalgia; Z79.899 Other long term (current) drug therapy; Z79.891 Long term (current) use of opiate analgesic; F17.210 Nicotine dependence, cigarettes, uncomplicated
CPT/HCPCS: J1885; J2270; J2405; J3010; J7120; Q9967

== ENCOUNTER 2021-04-17 15:05 | Emergency (ER) | payer MEDICARE, MEDICAID ==
[~2021-04-17] VITALS: Ht 152.4 cm; Wt 77.3 kg
[~2021-04-17 15:05] MED LIST changes: +ROXICODONE 55 MG/TAB PO
[2021-04-17 15:08] VITALS: TEMP 98.2
[2021-04-17 15:52] LABS: BASO % 0.3 % (0.0-2.0); EOS # 0.1 K/mm3 (0.0-0.7); GRAN # 4.8 K/mm3 (1.4-6.5); GRAN % 55.9 % (42.2-75.2); HEMATOCRIT 41.6 % (37.0-47.0); HEMOGLOBIN 14.2 g/dl (12.5-16.0); LYMPH # 3.2 K/mm3 (1.2-3.4); MEAN CELL VOLUME 86 fl (80.0-100.0); MEAN CORPUSCULAR HEMOGLOBIN 29 pg (27-31); MEAN CORPUSCULAR HGB CONC 34 g/dl (33.0-37.0); MEAN PLATELET VOLUME 8.8 fl (7.4-10.4); MONO # 0.5 K/mm3 (0.1-0.6); MONO % 5.6 % (1.7-9.3); PLATELET COUNT 335 K/mm3 (130-400); RED BLOOD COUNT 4.86 M/mm3 (4.10-5.30); REDCELL DISTRIBUTION WIDTH-CV 12.8 % (11.5-14.5)
[2021-04-17] MEDS ORDERED: ZOFRAN ODT4 MG PO (16:08)
[2021-04-17 16:15] LABS: ALBUMIN 3.9 gm/dL (3.5-5.0); BILIRUBIN,TOTAL 0.5 mg/dL (0.2-1.2); C-REACTIVE PROTEIN 0.59 mg/dL (0.00-0.50); CALCIUM 9.2 mg/dL (8.4-10.2); CREATININE, serum 0.68 mg/dL (0.57-1.11); TOTAL PROTEIN 7.6 gm/dL (6.2-8.1)
[2021-04-17 17:19] VITALS: BP 124/79; PULSE 66
== END 2021-04-17 17:21 | disposition home or self-care (01) ==
LOC: COL.ER 15:05
PROVIDERS: Family Medicine
DX: G43.909 Migraine, unspecified, not intractable, without status migrainosus (principal); Z87.891 Personal history of nicotine dependence; Z79.899 Other long term (current) drug therapy
CPT/HCPCS: J0780; J1100; J1200; J1885; J7120

== ENCOUNTER 2021-11-07 19:51 | Emergency (ER) | payer MEDICARE, MEDICAID ==
[~2021-11-07] VITALS: Wt 77.3 kg
[2021-11-07 20:38] LABS: BASO % 0.4 % (0.0-2.0); EOS # 0.1 K/mm3 (0.0-0.7); EOS % 1.9 % (0.0-4.0); GRAN # 3.6 K/mm3 (1.4-6.5); GRAN % 48.4 % (42.2-75.2); HEMATOCRIT 39.8 % (37.0-47.0); HEMOGLOBIN 13.6 g/dl (12.5-16.0); LYMPH # 3.1 K/mm3 (1.2-3.4); LYMPH % 41.7 % (20.0-51.0); MEAN CELL VOLUME 88 fl (80.0-100.0); MEAN CORPUSCULAR HEMOGLOBIN 30 pg (27-31); MEAN CORPUSCULAR HGB CONC 34 g/dl (33.0-37.0); MEAN PLATELET VOLUME 8.9 fl (7.4-10.4); MONO # 0.5 K/mm3 (0.1-0.6); MONO % 7.3 % (1.7-9.3); PLATELET COUNT 377 K/mm3 (130-400); RED BLOOD COUNT 4.54 M/mm3 (4.10-5.30)
[2021-11-07 20:56] LABS: ALANINE AMINOTRANSFERASE 11 U/L (0-55); ALBUMIN 3.8 gm/dL (3.5-5.0); ALKALINE PHOSPHATASE 57 U/L (40-150); ANION GAP 12 mmol/L (7-16); AST,SGOT 10 U/L (5-34); BILIRUBIN,TOTAL 0.2 mg/dL (0.2-1.2); BLOOD UREA NITROGEN 14 mg/dL (10-20); CALCIUM 9.2 mg/dL (8.4-10.2); CARBON DIOXIDE 20 mmol/L (22-29); CHLORIDE 109 mmol/L (98-107); CREATININE, serum 0.66 mg/dL (0.57-1.11); GLUCOSE 111 mg/dL (70-99); POTASSIUM 3.7 mmol/L (3.5-4.5); SODIUM 141 mmol/L (136-145); TOTAL PROTEIN 7.6 gm/dL (6.2-8.1)
[2021-11-07 21:18] LABS: TROPONIN-I < 0.010 ng/mL (0.00-0.033)
[2021-11-07 23:28] LABS: COLLECTION METHOD CLEAN CATCH
[2021-11-07 23:37] LABS: MUCOUS Present (NOT PRESENT); PH 6 (5-8); SQUAMOUS EPITHELIAL 0-2 /hpf (0-10); URINE APPEARANCE Clear (CLEAR/HAZY); URINE BACTERIA None Seen /hpf (NONE SEEN); URINE BLOOD Negative (NEGATIVE); URINE COLOR Straw (YELLOW); URINE GLUCOSE Negative (NEGATIVE); URINE KETONE Negative (NEGATIVE); URINE NITRATE Negative (NEGATIVE); URINE PROTEIN(semi-quant) Negative (NEGATIVE); URINE RBC 0-2 /hpf (0-2); URINE UROBILINOGEN Negative (NEGATIVE)
[2021-11-08 00:21] VITALS: BP 123/71; PULSE 74; TEMP 97.8
== END 2021-11-08 00:21 | disposition home or self-care (01) ==
LOC: COL.ER 19:51
PROVIDERS: Nurse Practitioner
DX: R42 Dizziness and giddiness (principal); R51.9 Headache, unspecified; F17.210 Nicotine dependence, cigarettes, uncomplicated

== ENCOUNTER 2023-03-06 06:24 | Emergency (ER) | payer MEDICARE, MEDICAID ==
[~2023-03-06] VITALS: Ht 154.9 cm; Wt 81.8 kg
[2023-03-06 06:26] VITALS: TEMP 98.1
[2023-03-06] MEDS ORDERED: AMOXICILLIN 8751 TAB PO (07:20)
[2023-03-06] MEDS ORDERED: NORCO 325 MG-51 TAB PO (07:20)
[2023-03-06 07:44] VITALS: BP 120/76; PULSE 79
== END 2023-03-06 07:44 | disposition home or self-care (01) ==
LOC: COL.ER 06:24
DX: K08.89 Other specified disorders of teeth and supporting structures (principal); Z87.891 Personal history of nicotine dependence

== ENCOUNTER 2023-04-29 17:55 | Emergency (ER) | payer OTHER ==
[~2023-04-29] VITALS: Ht 154.9 cm; Wt 81.8 kg
[~2023-04-29 17:55] MED LIST changes: +AMOXICILLIN 8751 TAB PO
[2023-04-29 17:57] VITALS: TEMP 98.1
[2023-04-29] MEDS ORDERED: Ondansetron 4 MG/2 ML VIAL IV ONE (19:00)
[2023-04-29 19:34] LABS: CREATININE, serum 0.74 mg/dL (0.57-1.11)
[2023-04-29] MEDS ORDERED: Iohexol 300 - 100 ML VIAL IV ONE (19:51)
[2023-04-29] MEDS ORDERED: NS 64 ML IV SCH (19:51)
[2023-04-29] MEDS ORDERED: Cyclobenzaprine 10 MG TAB PO ONE (20:45)
[2023-04-29] MEDS ORDERED: Ketorolac 30 MG/ML VIAL IV ONE (20:45)
[2023-04-29 21:29] VITALS: BP 116/85; PULSE 93
[2023-04-29] MEDS ORDERED: FLEXERIL 1010 MG/TAB PO (21:41)
[2023-04-29] MEDS ORDERED: Home Ondansetron ODT 4 MG #2 ODT/PACK PO ONE (22:00)
== END 2023-04-29 21:50 | disposition home or self-care (01) ==
LOC: COL.ER 17:55
PROVIDERS: Nurse Practitioner Primary Care
DX: S13.4XXA Sprain of ligaments of cervical spine, initial encounter (principal); R51.9 Headache, unspecified; M54.6 Pain in thoracic spine; M54.50 Low back pain, unspecified; R11.0 Nausea; Z87.891 Personal history of nicotine dependence; V89.2XXA Person injured in unspecified motor-vehicle accident, traffic, initial encounter; Y92.410 Unspecified street and highway as the place of occurrence of the external cause
CPT/HCPCS: J1885; J2405; Q9967

== ENCOUNTER 2023-05-11 18:32 | Emergency (ER) | payer OTHER, MEDICARE ==
[~2023-05-11] VITALS: Ht 154.9 cm; Wt 48.6 kg
[2023-05-11 18:41] VITALS: TEMP 98.3
[2023-05-11 19:32] LABS: BASO % 0.4 % (0.0-2.0); EOS # 0.2 K/mm3 (0.0-0.7); EOS % 1.6 % (0.0-4.0); GRAN # 5.3 K/mm3 (1.4-6.5); HEMATOCRIT 40.5 % (37.0-47.0); LYMPH # 3.6 K/mm3 (1.2-3.4); MEAN CELL VOLUME 87 fl (80.0-100.0); MEAN CORPUSCULAR HEMOGLOBIN 30 pg (27-31); MEAN CORPUSCULAR HGB CONC 35 g/dl (33.0-37.0); MEAN PLATELET VOLUME 8.7 fl (7.4-10.4); MONO # 0.6 K/mm3 (0.1-0.6); MONO % 5.7 % (1.7-9.3); PLATELET COUNT 411 K/mm3 (130-400); RED BLOOD COUNT 4.66 M/mm3 (4.10-5.30)
[2023-05-11] MEDS ORDERED: Acetaminophen 500 MG TAB PO ONE (19:45)
[2023-05-11] MEDS ORDERED: traMADol 50 MG TAB PO ONE (19:45)
[2023-05-11] MEDS ORDERED: tiZANidine 4 MG TAB PO ONE (19:45)
[2023-05-11] MEDS ORDERED: Ketorolac 30 MG/ML VIAL IV ONE (19:45)
[2023-05-11 19:50] LABS: ALANINE AMINOTRANSFERASE 15 U/L (0-55); ALBUMIN 3.7 gm/dL (3.4-4.8); ALKALINE PHOSPHATASE 65 U/L (40-150); ANION GAP 11 mmol/L (7-16); AST,SGOT 15 U/L (5-34); BILIRUBIN,TOTAL 0.3 mg/dL (0.2-1.2); BLOOD UREA NITROGEN 13 mg/dL (10-20); CALCIUM 9.6 mg/dL (8.4-10.2); CARBON DIOXIDE 18 mmol/L (23-31); CHLORIDE 110 mmol/L (98-107); CREATININE, serum 0.72 mg/dL (0.57-1.11); GLUCOSE 118 mg/dL (70-99); SODIUM 139 mmol/L (136-145); TOTAL PROTEIN 7.5 gm/dL (6.2-8.1)
[2023-05-11 20:00] LABS: TROPONIN-I < 0.010 ng/mL (0.00-0.033)
[2023-05-11] MEDS ORDERED: ZANAFLEX CAPSULE4 MG PO (21:14)
[2023-05-11 21:24] VITALS: BP 119/82; PULSE 93
[2023-05-11] MEDS ORDERED: IBU800 M1 PO (21:28)
== END 2023-05-11 21:24 | disposition home or self-care (01) ==
LOC: COL.ER 18:32
PROVIDERS: Nurse Practitioner Primary Care
DX: M62.838 Other muscle spasm (principal); R07.9 Chest pain, unspecified; R06.02 Shortness of breath; Z98.890 Other specified postprocedural states; Z87.891 Personal history of nicotine dependence
CPT/HCPCS: J1885

== ENCOUNTER → 2023-06-15 | Outpatient (CLI) | payer MEDICARE, MEDICAID ==
[~2023-06-15] MED LIST changes: +IBU800 M1 PO; +ZANAFLEX CAPSULE4 MG PO
== END ==
LOC: MHCPAIN 10:00
DX: M47.812 Spondylosis without myelopathy or radiculopathy, cervical region (principal); M54.2 Cervicalgia
CPT/HCPCS: G0463

== ENCOUNTER 2023-06-28 14:30 | Outpatient (RCR) | payer MEDICARE | END 2023-07-04 | disposition home or self-care (01) | LOC: WSPT | DX: M47.812 Spondylosis without myelopathy or radiculopathy, cervical region (principal) ==

== ENCOUNTER → 2024-01-07 | Outpatient (CLI) | payer MEDICARE ==
[~2024-01-07] MED LIST changes: +VOLTAREN GEL 1%1 TU TP
== END ==
LOC: COL.RAD 14:49
DX: M51.16 Intervertebral disc disorders with radiculopathy, lumbar region (principal); M47.22 Other spondylosis with radiculopathy, cervical region; M47.26 Other spondylosis with radiculopathy, lumbar region; M48.061 Spinal stenosis, lumbar region without neurogenic claudication; V89.2XXS Person injured in unspecified motor-vehicle accident, traffic, sequela